=== PATIENT | female | born 1955 | race Caucasian/White ===

== ENCOUNTER 2016-10-16 12:49 | Emergency (ER) | payer MEDICAID ==
[~2016-10-16] VITALS: Ht 172.7 cm; Wt 68.0 kg
[~2016-10-16 12:49] MED LIST: ASEN10TA SL; CITA-48 PO; MELO7.5S; OMEP20TA39 PO; SIMV10TA OR; TRAZ100 PO
[2016-10-16 12:54] VITALS: BP 125/60; PULSE 65; RESP 15; TEMP 98; O2SAT 98
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
[2016-10-16] MEDS ORDERED: IBUPROFEN 800 MG TAB PO ONE (14:00)
[2016-10-16] MEDS ORDERED: ACETAMINOPHEN 325 MG TAB PO ONE (14:00)
--- NOTE | 2016-10-16 15:06 | RADRPT ---
EXAM DATE/TIME: 10/16/2016 14:19 [facility] COMPARISON: No previous studies available for comparison. INDICATIONS : Evaluate for fracture after tripping and falling.. MEDICAL HISTORY : Carpal tunnel right hand. SURGICAL HISTORY : None. ENCOUNTER: Initial ACUITY: 2 weeks PAIN SCORE: 10/10 LOCATION: Right Hand. FINDINGS: There is evidence of acute fractures involving the bases of the right third and fourth proximal phala nges. There is mild angulation of these fractures also. CONCLUSION: 1. Acute mildly angulated fractures involving the proximal portions of the right third and fourth ph alanges. Edwin Lowery MD on October 16, 2016 at 14:57 Board Certified Radiologist. This report was verified electronically.
[2016-10-16] MEDS ORDERED: ACET500T3 PO (15:26)
[2016-11-16] MEDS ORDERED: TRAZ100T4 PO (10:38)
[2016-11-16] MEDS ORDERED: CELE20TA PO (10:38)
[2016-11-16] MEDS ORDERED: MELO7.5T4 PO ×2 (10:38→14:58)
[2016-11-16] MEDS ORDERED: SAPH10SU3 SL (10:38)
[2016-11-16] MEDS ORDERED: NORC5TAB PO (14:58)
== END 2016-10-16 16:01 | disposition home or self-care (01) ==
LOC: NETRI 12:49
DX: S62.612A Displaced fracture of proximal phalanx of right middle finger, initial encounter for closed fracture (principal); E78.00 Pure hypercholesterolemia, unspecified; K21.9 Gastro-esophageal reflux disease without esophagitis; F17.210 Nicotine dependence, cigarettes, uncomplicated; W19.XXXA Unspecified fall, initial encounter; Y93.9 Activity, unspecified; Y92.9 Unspecified place or not applicable
CPT/HCPCS: 29125; 29130; 73130